=== PATIENT | female | born 1955 | race Two or more races ===

== ENCOUNTER 2022-10-02 20:03 | Emergency (ER) | payer OTHER ==
[~2022-10-02] VITALS: Ht 157.5 cm; Wt 86.4 kg
[2022-10-02 22:57] LABS: Basophils # (auto) 0 10 ^3/uL (0-0.2); Basophils % (auto) 0.2 % (0.0-2.0); Eosinophils # (auto) 0 10 ^3/uL (0-0.8); Eosinophils % (auto) 0.2 % (0.0-7.0); Hematocrit 39.1 % (36.0-46.0); Hemoglobin 13.5 g/dL (12.2-16.2); Lymphocytes # (auto) 1.9 10 ^3/uL (0.4-5.4); Lymphocytes % (auto) 10.8 % (10.0-50.0); Mean Corpuscular Hemoglobin 29.1 pg (28.0-32.0); Mean Corpuscular Hgb Conc. 34.6 g/dL (32.0-36.0); Mean Corpuscular Volume 84.1 fL (80.0-100.0); Monocytes # (auto) 0.9 10 ^3/uL (0-1.3); Neutrophils # (auto) 14.8 10 ^3/uL (1.6-8.6); Neutrophils % (auto) 83.8 % (37.0-80.0); Red Blood Cells 4.65 10^6/uL (4.0-5.20); Red Cell Distribution Width 15.4 % (11.8-14.3); White Blood Cell 17.7 10^3/uL (4.4-10.8)
[2022-10-02 23:08] LABS: BUN/Creatinine Ratio 22.5; Calcium 9.4 mg/dL (8.5-10.1)
[2022-10-02 23:11] LABS: Bilirubin, Total 0.6 mg/dL (0.2-1.0)
[2022-10-02] MEDS ORDERED: ONDANSETRON HCL 4 MG/2 ML VIAL IV ONE (23:15)
[2022-10-02] MEDS ORDERED: HYDROmorphone HCL 2 MG/ML VL/or syr IV ONE (23:15)
[2022-10-02 23:18] LABS: Potassium 2.7 mmol/L (3.5-5.1)
[2022-10-02] MEDS ORDERED: POTASSIUM CHL 20 Meq TABLET PO ONE (23:30)
[2022-10-02] MEDS ORDERED: POTASSIUM CHL 20MEQ/100ML 100 ML IV ONE (23:30)
[2022-10-03] MEDS ORDERED: HYDROmorphone HCL 2 MG/ML VL/or syr IV ONE ×2 (01:00→05:30)
[2022-10-03] MEDS ORDERED: PROPOFOL 10 MG/ML 20 ML IV ONE ×2 (03:30→05:00)
[2022-10-03] MEDS ORDERED: SODIUM CHLORIDE 0.9% 1,000 ML IV ONE (05:00)
[2022-10-03] MEDS ORDERED: POTASSIUM CHL 20MEQ/100ML 100 ML IV ONE (05:00)
[2022-10-03] MEDS ORDERED: ONDANSETRON HCL 4 MG/2 ML VIAL IV ONE (05:30)
[2022-10-03] MEDS ORDERED: hydrALAZINE HCL 20 MG/ML VL IV PRN (06:30)
[2022-10-03 07:04] LABS: Basophils # (auto) 0.1 10 ^3/uL (0-0.2); Basophils % (auto) 0.3 % (0.0-2.0); Eosinophils # (auto) 0 10 ^3/uL (0-0.8); Hematocrit 36.4 % (36.0-46.0); Hemoglobin 12.6 g/dL (12.2-16.2); Lymphocytes # (auto) 0.9 10 ^3/uL (0.4-5.4); Lymphocytes % (auto) 6.2 % (10.0-50.0); Mean Corpuscular Hemoglobin 28.9 pg (28.0-32.0); Mean Corpuscular Hgb Conc. 34.6 g/dL (32.0-36.0); Mean Corpuscular Volume 83.5 fL (80.0-100.0); Monocytes # (auto) 0.9 10 ^3/uL (0-1.3); Monocytes % (auto) 5.7 % (0.0-12.0); Neutrophils # (auto) 13.5 10 ^3/uL (1.6-8.6); Neutrophils % (auto) 87.8 % (37.0-80.0); Red Blood Cells 4.36 10^6/uL (4.0-5.20); Red Cell Distribution Width 15.2 % (11.8-14.3); White Blood Cell 15.4 10^3/uL (4.4-10.8)
[2022-10-03] MEDS ORDERED: POTA1TAB61 PO (07:15)
[2022-10-03] MEDS ORDERED: HYDR-4902 PO ×2 (07:15→07:22)
[2022-10-03] MEDS ORDERED: DOCU-94 PO (07:15)
[2022-10-03 07:20] LABS: Calcium 8.4 mg/dL (8.5-10.1); Potassium 4.4 mmol/L (3.5-5.1)
[2022-10-03 07:24] LABS: BUN/Creatinine Ratio 26.4
[2022-10-03] MEDS ORDERED: hydrALAZINE HCL 20 MG/ML VL IV ONE (07:30)
[2022-10-03] MEDS ORDERED: dilTIAZem 120MG ER CAP PO ONE (07:30)
[2022-10-03 07:42] LABS: Urine Bacteria NONE SEEN /hpf (None Seen); Urine Blood 2+ /uL (Negative); Urine Specific Gravity 1.014 (1.001-1.035); Urine WBC 2 /hpf (0 - 5)
[2022-10-03 08:43] VITALS: BP 147/60
== END 2022-10-03 08:48 | disposition home or self-care (01) ==
LOC: EDBD 20:03 → ER 20:09
DX: S42.391A Other fracture of shaft of right humerus, initial encounter for closed fracture (principal); S43.014A Anterior dislocation of right humerus, initial encounter; R55 Syncope and collapse; I10 Essential (primary) hypertension; E11.9 Type 2 diabetes mellitus without complications; J45.909 Unspecified asthma, uncomplicated; Z88.0 Allergy status to penicillin; Z88.8 Allergy status to other drugs, medicaments and biological substances; Z20.822 Contact with and (suspected) exposure to COVID-19; W01.0XXA Fall on same level from slipping, tripping and stumbling without subsequent striking against object, initial encounter; Y93.89 Activity, other specified; Y92.89 Other specified places as the place of occurrence of the external cause; Y99.8 Other external cause status
CPT/HCPCS: 24500; 36415; 70450; 71250; 72125; 73020; 73030; 73200; 74176; 80048; 80053; 81001; 84484; 84702; 85025; 87426; 93005; 96361; 96374; 96375; 96376; 99285; J0360; J1170; J2405; J2704; J3480